=== PATIENT | male | born 1965 | race Hispanic/Latino ===

== ENCOUNTER 2019-03-26 07:08 | Observation (INO) | payer OTHER ==
[2019-03-17 09:21] LABS: BASOPHILS % 0.1 % (0.0-1.0); EOSINOPHILS # (AUTO) 0.1 (0.0-0.4); EOSINOPHILS % 0.8 % (0.0-6.0); LYMPHOCYTES % 27.2 % (18.0-39.1); MEAN CORPUSCULAR HEMOGLOBIN 30.4 pg (28-32); MEAN CORPUSCULAR HGB CONC 33.3 g/dL (31-35); MEAN CORPUSCULAR VOLUME 91.1 fL (81-99); MONOCYTES # (AUTO) 0.5 (0.2-0.8); MONOCYTES % 6.9 % (4.4-11.3); NEUTROPHILS # (AUTO) 4.7 (2.1-6.9); NEUTROPHILS % 64.7 % (38.7-80.0); PLATELET COUNT 185 x10e3/uL (140-360); RED BLOOD COUNT 4.94 x10e6/uL (4.3-5.7); RED CELL DISTRIBUTION WIDTH 12.9 % (11.7-14.4)
[2019-03-17 09:30] LABS: INR 1.23; PROTHROMBIN TIME 16.1 seconds (11.9-14.5)
[2019-03-17 09:45] LABS: BLOOD UREA NITROGEN 19 mg/dL (7-26); BUN/CREATININE RATIO 23 (6-25); CALCIUM 9.6 mg/dL (8.4-10.2); CARBON DIOXIDE 25 mmol/L (22-29); CHLORIDE 102 mmol/L (98-107); CREATININE, SERUM 0.81 mg/dL (0.72-1.25); EST GLOMERULAR FILTRATION RATE > 60 ML/MIN (60-); GLUCOSE 98 mg/dL (74-118); SODIUM 135 mmol/L (136-145)
[~2019-03-26] VITALS: Ht 177.8 cm; Wt 81.6 kg
[~2019-03-26 07:08] MED LIST: BENZONATATE100 MG PO; CRESTOR10 MG PO; DICYCLOMINE HCL20 MG PO; FARXIGA PO; MONTELUKAST SOD10 MG PO; NEXIUM20 MG PO; NEXIUM40 MG PO; TAMSULOSIN HCL0.4 MG PO; ZETIA10 MG PO
--- OUTSIDE RECORDS SUMMARY | 2019-03-26 07:11 | XMS REPORT | Clinical Summary ---
Author Author [facility] Address Unknown Phone Unavailable Care Team Providers Care Supervisor Fruit Grading Name Role Phone Luis AlbertobeanAnjel oliveira PCP Allergies Comments Active Allergy Reactions Severity Noted Date Codeine Phosphate Hives High 11/09/2012 Medications End Date Status Medication Sig Dispensed Refills Start Date Active ezetimibe (ZETIA) 10 mg Take 10 mg by 0 tablet mouth daily. Active omeprazole (PRILOSEC) 20 Take 20 mg by 0 MG capsuleIndications: mouth daily. Fatty liver, Abnormal LFTs, Hepatitis C virus infection without hepatic coma, unspecified chronicity, Screening for cancer Active esomeprazole (NEXIUM) 40 Take 40 mg by 0 MG capsule mouth daily. Active Problems Problem Noted Date Abnormal INR 11/24/2015 Muscle cramps 07/21/2015 Liver fibrosis 07/21/2015 Overweight 07/21/2015 Neck pain 02/28/2013 Hepatitis C 11/09/2012 Fatty liver 11/09/2012 Abnormal LFTs 11/09/2012 Screening for endocrine/metabolic/immunity disorders 11/09/2012 Hyperlipidemia 11/09/2012 Encounters Care Team Description Date Type Specialty Latisha Ac RN Appointment 03/24/2019 Telephone Hepatology Renea Saini RN Liver fibrosis (HCC) (Primary Dx) 03/13/2019 Orders Only Hepatology Renea Saini RN Liver fibrosis (HCC) (Primary Dx); Screening for malignant neoplasm 03/13/2019 Orders Only Hepatology after 03/25/2018 Family History Medical History Relation Name Comments Colon cancer Brother Hypertension Brother Hypertension Mother Relation Name Status Comments Brother Alive Brother Brother Father Mother Alive Social History Date Tobacco Use Types Packs/Day Years Used Never Smoker Smokeless Tobacco: Never Used Alcohol Use Drinks/Week oz/Week Comments No Sex Assigned at Date Recorded Not on file Industry Job Start Date Occupation Not on file Not on file Not on file Travel End Travel History Travel Start No recent travel history available. Last Filed Vital Signs Not on file Plan of Treatment Care Team Description Date Type Specialty Selene Shirley MD [address] [address] [phone] 04/03/2019 Appointment Radiology Selene Shirley MD [address] [address] [phone] Resource, [facility] E 04/03/2019 Office Visit Hepatology Procedures Comments Procedure Name Priority Date/Time Associated Diagnosis BASIC METABOLIC PANEL (7) Routine 03/24/2019 Liver fibrosis (HCC) 12:00 AM CDT HEPATIC FUNCTION PANEL Routine 03/24/2019 Liver fibrosis (HCC) 12:00 AM CDT CBC W/PLT COUNT & AUTO Routine 03/24/2019 Liver fibrosis (HCC) DIFFERENTIAL 12:00 AM CDT PROTHROMBIN TIME/INR Routine 03/24/2019 Liver fibrosis (HCC) 12:00 AM CDT ALPHA FETOPROTEIN (AFP), Routine 03/24/2019 Liver fibrosis (HCC) TUMOR MARKER 12:00 AM CDT Screening for malignant neoplasm after 03/25/2018 Results * Alpha fetoprotein (AFP), tumor marker (03/24/2019 12:00 AM CDT) AFP, Serum, Tumor Marker 3.6 0.0 - 8.3 ng/mL [facility] Comment: [employer] Electrochemiluminescence Immunoassay (ECLIA) Values obtained with different assay methods or kits cannot be used interchangeably.Results cannot be interpreted as absolute evidence of the presence or absence of malignant disease. This test is not interpretable in females. Specimen Blood Narrative Performed At Performed at: - [facility] [address] [place], [id number] Family Program Specialist: Jan Awad MD, Phone:[phone] Performing Organization Address City/State/Zipcode Phone Number [facility] * Pro-time/INR (03/24/2019 12:00 AM CDT) INR 1.6 (H) 0.8 - 1.2 [facility] 1 Comment: Reference interval is for non-anticoagulated patients. Suggested INR therapeutic range for Vitamin K antagonist therapy: Standard Dose (moderate intensity therapeutic range): 2.0 - 3.0 Higher intensity therapeutic range 2.5 - 3.5 Prothrombin Time 16.2 (H) 9.1 - 12.0 sec [facility] 1 Specimen Blood Narrative Performed At Performed at:01 - [facility] [address] [place], [id number] Family Program Specialist: Jan Awad MD, Phone:[phone] Performing Organization Address [facility] Phone Number [facility] * CBC with platelet count + automated diff (03/24/2019 12:00 AM CDT) WBC 7.7 3.4 - 10.8 x10E3/uL [facility] 1 RBC 5.06 4.14 - 5.80 x10E6/uL [facility] 1 Hemoglobin 15.6 13.0 - 17.7 g/dL [facility] 1 Hematocrit 45.5 37.5 - 51.0 % [facility] 1 MCV 90 79 - 97 fL [facility] 1 MCH 30.8 26.6 - 33.0 pg [facility] 1 MCHC 34.3 31.5 - 35.7 g/dL [facility] 1 RDW 13.7 12.3 - 15.4 % [facility] 1 Platelets 210 150 - 450 x10E3/uL [facility] % Neutros 59 Not Estab. % [facility] % Lymphs 33 Not Estab. % [facility] % Monos 7 Not Estab. % [facility] % Eos 1 Not Estab. % [facility] % Baso 0 Not Estab. % [facility] # Neutros 4.6 1.4 - 7.0 x10E3/uL [facility] # Lymphs 2.5 0.7 - 3.1 x10E3/uL [facility] # Monos 0.5 0.1 - 0.9 x10E3/uL [facility] # Eos 0.0 0.0 - 0.4 x10E3/uL [facility] 1 Baso (Absolute) 0.0 0.0 - 0.2 x10E3/uL [facility] % Immature Grans 0 Not Estab. % [facility] # Immature Grans 0.0 0.0 - 0.1 x10E3/uL [facility] 1 Specimen Blood Narrative Performed At Performed at:[address] [place], [place] [id number] Family Program Specialist: Jan Awad MD, Phone:[phone] Performing Organization Address [facility] Phone Number [facility] * Hepatic function panel (03/24/2019 12:00 AM CDT) Protein, Total, Serum 7.7 6.0 - 8.5 g/dL [facility] 1 Albumin, Serum 5.0 3.5 - 5.5 g/dL [facility] 1 Bilirubin, Total 0.3 0.0 - 1.2 mg/dL [facility] 1 Bilirubin, Direct 0.11 0.00 - 0.40 mg/dL [facility] 1 Alkaline Phosphatase, S 53 39 - 117 IU/L [facility] 1 AST (SGOT) 28 0 - 40 IU/L [facility] 1 ALT (SGPT) 37 0 - 44 IU/L [facility] 1 Specimen Blood Narrative Performed At Performed at:[address] [place], [place] [id number] Family Program Specialist: Jan Awad MD, Phone:[phone] Performing Organization Address [facility] Phone Number [facility] * Basic Metabolic Panel (03/24/2019 12:00 AM CDT) Glucose, Serum 105 (H) 65 - 99 mg/dL [facility] BUN 23 6 - 24 mg/dL [facility] 1 Creatinine, Serum 0.92 0.76 - 1.27 mg/dL [facility] 1 eGFR If NonAfricn Am 93 >59 mL/min/1.73 [facility] 1 eGFR If Africn Am 108 >59 mL/min/1.73 [facility] 1 BUN/Creatinine Ratio 25 (H) 9 - 20 [facility] 1 Sodium, Serum 141 134 - 144 mmol/L [facility] 1 Potassium, Serum 4.3 3.5 - 5.2 mmol/L [facility] 1 Chloride, Serum 104 96 - 106 mmol/L [facility] 1 Carbon Dioxide, Total 19 (L) 20 - 29 mmol/L [facility] 1 Calcium, Serum 10.2 8.7 - 10.2 mg/dL [facility] 1 Specimen Blood Narrative Performed At Performed at:01 - [facility] [address] [place], [id number] Family Program Specialist: Jan Awad MD, Phone:[phone] Performing Organization Address City/State/Zipcode Phone Number [facility] 1 after 03/25/2018 Insurance Payer Benefit Subscriber ID Type Phone Address Plan / Group [facility] xxxxxxxxx HMO/POS CARE POS SELECT CHOICE
--- OUTSIDE RECORDS SUMMARY | 2019-03-26 07:11 | XMS REPORT | Clinical Summary ---
Author Author [facility] Address Unknown Phone Unavailable Care Team Providers Care Cnc Machinist 2Nd Shift Name Role Phone Anjel Gamble MD PCP Allergies No Known Allergies Medications End Date Status Medication Sig Dispensed Refills Start Date Active esomeprazole (NexIUM) 40 Take 40 mg by 0 MG capsule mouth. Active ezetimibe (ZETIA) 10 mg Take 20 mg by 0 tablet mouth. Active tamsulosin (FLOMAX) 0.4 TK 1 C PO QD 1 11/21/201 mg capsule,extended 7 release 24hr Active Problems Not on file Family History Medical History Relation Name Comments No Known Problems Brother Colon cancer Father No Known Problems Maternal Aunt No Known Problems Maternal Grandfather No Known Problems Maternal Grandmother No Known Problems Maternal Uncle No Known Problems Mother No Known Problems Paternal Aunt No Known Problems Paternal Grandfather No Known Problems Paternal Grandmother No Known Problems Paternal Uncle No Known Problems Sister Fournier's esophagus Neg Hx Breast cancer Neg Hx Celiac disease Neg Hx Cirrhosis Neg Hx Colon polyps Neg Hx Crohn's disease Neg Hx Cystic fibrosis Neg Hx Eating disorder Neg Hx Esophageal cancer Neg Hx GERD Neg Hx DIRECTOR BIOINFORMATICS Cancer Neg Hx Hemochromatosis Neg Hx Inflammatory bowel Neg Hx disease Irritable bowel syndrome Neg Hx Liver cancer Neg Hx Liver disease Neg Hx Pancreatic cancer Neg Hx Pancreatitis Neg Hx Rectal cancer Neg Hx Stomach cancer Neg Hx Ulcerative colitis Neg Hx Relation Name Status Comments Brother Father Maternal Aunt Maternal Grandfather Maternal Grandmother Maternal Uncle Mother Paternal Aunt Paternal Grandfather Paternal Grandmother Paternal Uncle Sister Social History Date Tobacco Use Types Packs/Day Years Used Never Smoker Drinks/Week oz/Week Comments Alcohol Use No Sex Assigned at Date Recorded Not on file Industry Job Start Date Occupation Not on file Not on file Not on file Travel End Travel History Travel Start No recent travel history available. Last Filed Vital Signs Not on file Plan of Treatment Health Maintenance Due Date Last Done Comments COLONOSCOPY SCREENING 2013 SHINGLES VACCINES (#1) 2013 INFLUENZA VACCINE 03/06/2019 Results Not on fileafter 03/25/2018 Insurance Type Payer Benefit Subscriber ID Effective Phone Address Plan / Dates Group PPO BCBS BCBS xxxxxxxxxxxx 2015-P CHOICE resent PPO/[employer] EMPL PPO Advance Directives For more information, please contact: [phone] Patient Director Global Explanation Type Date Recorded Advance Directives, Living Will and Medical Power of Brick [employer] Mason Advance Directives, 09/22/2016 12:27 PM Living Will and Medical Power of [employer] Mason Advance Directives, 09/27/2016 2:26 PM Living Will and Medical Power of [employer] Mason
[2019-03-26] MEDS ORDERED: LEVOFLOXACIN 500MG/D5W 100ML 100 ML IV ONE (07:53)
[2019-03-26] MEDS ORDERED: IOPAMIDOL 610MG/1ML 300 MG/ML VIAL IV ONE (09:51)
[2019-03-26] MEDS ORDERED: FENTANYL CITRATE/PF 100MCG/2 ML INJ ONE ×2 (11:07→18:35)
--- NOTE | 2019-03-26 11:24 | Operative Report ---
DATE OF PROCEDURE: 03/26/2019 SURGEON: Kris Iglesias MD PREOPERATIVE DIAGNOSES: 1. Lower urinary tract obstructive symptoms. 2. Rule out bladder neck contraction. POSTOPERATIVE DIAGNOSES: 1. Lower urinary tract obstructive symptoms. 2. Rule out bladder neck contraction. 3. 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 OPERATION: 1. Cystourethroscopy. 2. Balloon dilation of the bladder neck. 3. Transurethral resection of the prostate from 10 to 3 o'clock position. ANESTHETIC: General. DESCRIPTION OF PROCEDURE: Mr. Diehl is a 53-year-old male who presented with a chief complaint of increasing lower urinary tract obstructive symptoms. He has had TURP in the past many, many years ago and now having increasing symptoms. This patient was placed on the table in lithotomy position and was prepped and draped in a sterile manner after satisfactory anesthesia. A #21 Austrian cystoscope was used and cystourethroscopy was performed and confirmed a previous problem of the obstruction at the level of the bladder neck with a large prostatic tissue hanging from the anterior wall of the prostate and almost completely occluding the prosthetic urethra. Cystoscopy was then performed using both right angle and the foroblique lens and the bladder mucosa was normal. Both ureteral orifices were seen and were within normal position, configuration efflux. The bladder wall was mildly trabeculated. The Arnold resectoscope was then placed passing the scope through the urethra to the bladder. Obturator removed and the Arnold resectoscope was placed. Reinspection of the bladder and prostatic fossa confirmed the previous cystoscopic findings. Resection of the prostatic tissue was done from around 9 o'clock going in a clock beltran fashion all the way to 3 clock resecting all the enlarged protruding obstructing prostatic tissue. Hemostasis was obtained all through and was very adequate. At the termination of the procedure, all the prostatic chips were removed. The cystoresectoscope was removed and a #22 three-way Austrian Kendrick catheter was placed on mild traction. Estimated blood loss was about 20 to 30 mL. Kris Iglesias MD MA/CORNELL /[id number]
--- OUTSIDE RECORDS SUMMARY | 2019-03-26 11:37 | XMS REPORT | Clinical Summary ---
Author Author [facility] Address Unknown Phone Unavailable Care Team Providers Care Pearl Restorer Name Role Phone Anjel Gamble MD PCP [...] Esophageal cancer Neg Hx GERD Neg Hx INDEPENDENT VIDEO PRODUCER Cancer Neg Hx Hemochromatosis Neg Hx Inflammatory [...] Advance Directives For more information, please contact: [phone] Patient Marine Farmer Explanation Type Date Recorded Advance Directives, Living Will and Medical Power of Educational Specialist Advance Directives, 09/22/2016 12:27 PM Living Will and Medical Power of Educational Specialist Advance Directives, 09/27/2016 2:26 PM Living Will and Medical Power of Educational Specialist
--- OUTSIDE RECORDS SUMMARY | 2019-03-26 11:37 | XMS REPORT | Clinical Summary ---
Author Author [facility] Address Unknown Phone Unavailable Care Team Providers Care Diagnostic Sales Specialist Name Role Phone Luis AlbertobeanAnjel oliveira PCP [...] Date Type Specialty Selene Shirley MD [address] [address] [phone] 04/03/2019 Appointment Radiology Selene Shirley MD [address] [address] [phone] Resource, [facility] E 04/03/2019 Office Visit Hepatology [...] Narrative Performed At Performed at: - [facility] [address] [place], [id number] [place] Chief: Jan Awad MD, Phone:[phone] Performing Organization Address City/State/Zipcode Phone Number [facility] [...] Narrative Performed At Performed at:01 - [facility] [address] [place], [id number] [place] Chief: Jan Awad MD, Phone:[phone] Performing Organization Address [facility] Phone Number [facility] 1 * CBC with platelet count [...] 1 Specimen Blood Narrative Performed At Performed at:[address] [place], [place] [id number] [employer] [place] Chief: Jan Awad MD, Phone:[phone] Performing Organization Address [facility] Phone Number [facility] * Hepatic function [...] 1 Specimen Blood Narrative Performed At Performed at:[address] [place], [place] [id number] [employer] [place] Chief: Jan Awad MD, Phone:[phone] Performing Organization Address [facility] Phone Number [facility] 1 * Basic [...] Narrative Performed At Performed at:01 - [facility] [address] [place], [id number] [place] Chief: Jan Awad MD, Phone:[phone] Performing Organization Address City/State/Zipcode Phone Number [facility] 1 after 03/25/2018 Insurance Payer Benefit Subscriber ID Type Phone Address Plan / Group [facility] HMO/POS CARE POS SELECT CHOICE
[2019-03-26 12:26] VITALS: BP 110/68
[2019-03-26] MEDS ORDERED: LEVOFLOXACIN 500MG/D5W 100ML 100 ML IV SCH (12:33)
[2019-03-26 12:43] VITALS: BP 110/68
[2019-03-26 12:57] VITALS: BP 110/68
[2019-03-26] MEDS: ONDANSETRON HCL INJ 2MG/ML 2ML 2 MG/ML VIAL IV PRN ×2 (13:14→19:30)
[2019-03-26] MEDS: DEXTROSE 5%/0.45% SOD CHL 1,000 ML IV SCH ×2 (13:14→21:35)
[2019-03-26] MEDS: HYDROMORPHONE 2MG/ML 2 MG/ML ML IV PRN ×2 (13:14→19:30)
[2019-03-26] MEDS ORDERED: PROPOFOL IV EMULSION 10 MG/ML 20 ML VIAL ONE (18:15)
[2019-03-26] MEDS ORDERED: DEXAMETHASONE SOD PHOS INJ 4 MG/ML VIAL ONE (18:15)
[2019-03-26] MEDS ORDERED: METOCLOPRAMIDE HCL 10 MG/2ML VIAL ONE (18:15)
[2019-03-26] MEDS ORDERED: GLYCOPYRROLATE INJ 1MG/ 5 ML SYR ONE (18:15)
[2019-03-26] MEDS ORDERED: LIDOCAINE HCL 2% LOCAL INJ 5 ML SDV VIAL INJ ONE (18:15)
[2019-03-26] MEDS ORDERED: SEVOFLURANE INHAL SOLN 250 ML PEN BTL ONE (18:15)
[2019-03-26] MEDS ORDERED: ONDANSETRON HCL INJ 2MG/ML 2ML 2 MG/ML VIAL ONE (18:15)
[2019-03-26] MEDS ORDERED: MIDAZOLAM HCL 2 MG/2 ML VIAL ONE (18:35)
--- NOTE | 2019-03-26 19:10 | NUR ---
Received patient from day nurse, safety and fall precautions maintained as per hospital protocol.
[2019-03-26 20:00] VITALS: BP 102/72
[2019-03-26 20:47] VITALS: BP 102/71
[2019-03-26] MEDS ORDERED: SIMVASTATIN 40 MG TAB PO SCH (21:00)
[2019-03-27] MEDS: HYDROMORPHONE 2MG/ML 2 MG/ML ML IV PRN ×2 (00:21→15:54)
[2019-03-27 01:27] VITALS: BP 107/75
[2019-03-27] MEDS: DEXTROSE 5%/0.45% SOD CHL 1,000 ML IV SCH ×2 (04:44→13:25)
[2019-03-27 05:15] VITALS: BP 92/62
[2019-03-27 06:23] LABS: BASOPHILS % 0.1 % (0.0-1.0); EOSINOPHILS % 0.1 % (0.0-6.0); HEMOGLOBIN 12.9 g/dL (14.0-18.0); LYMPHOCYTES # (AUTO) 1.3 (1.0-3.2); LYMPHOCYTES % 9.5 % (18.0-39.1); MEAN CORPUSCULAR HEMOGLOBIN 30.5 pg (28-32); MEAN CORPUSCULAR HGB CONC 32.3 g/dL (31-35); MEAN CORPUSCULAR VOLUME 94.6 fL (81-99); MONOCYTES # (AUTO) 0.7 (0.2-0.8); MONOCYTES % 5.1 % (4.4-11.3); NEUTROPHILS # (AUTO) 11.9 (2.1-6.9); NEUTROPHILS % 84.8 % (38.7-80.0); PLATELET COUNT 170 x10e3/uL (140-360); RED BLOOD COUNT 4.23 x10e6/uL (4.3-5.7); RED CELL DISTRIBUTION WIDTH 13.1 % (11.7-14.4)
[2019-03-27 06:39] LABS: ANION GAP 11.8 mmol/L (8-16); BLOOD UREA NITROGEN 15 mg/dL (7-26); BUN/CREATININE RATIO 18 (6-25); CALCIUM 8.8 mg/dL (8.4-10.2); CARBON DIOXIDE 24 mmol/L (22-29); CHLORIDE 100 mmol/L (98-107); CREATININE, SERUM 0.82 mg/dL (0.72-1.25); EST GLOMERULAR FILTRATION RATE > 60 ML/MIN (60-); GLUCOSE 142 mg/dL (74-118); POTASSIUM 3.8 mmol/L (3.5-5.1); SODIUM 132 mmol/L (136-145)
--- NOTE | 2019-03-27 07:00 | NUR ---
patient endorsed to next shift for continuity of care.
[2019-03-27 07:54] VITALS: BP 97/69
[2019-03-27] MEDS ORDERED: LEVOFLOXACIN 500MG/D5W 100ML 100 ML IV SCH (09:00)
[2019-03-27] MEDS ORDERED: PANTOPRAZOLE SOD 40 MG TABEC PO SCH (09:00)
[2019-03-27] MEDS ORDERED: DAPAGLIFLOZIN 10 MG PO SCH (09:00)
[2019-03-27 09:57] VITALS: BP 97/69
[2019-03-27 12:17] VITALS: BP 94/69
[2019-03-27] MEDS: ONDANSETRON HCL INJ 2MG/ML 2ML 2 MG/ML VIAL IV PRN (15:59)
[2019-03-27 16:24] VITALS: BP 124/84
--- NOTE | 2019-03-27 18:01 | NUR ---
PATIENT VOIDED 100 ML POST URINARY CATHETER REMOVAL.
== END 2019-03-27 18:50 | disposition home or self-care (01) ==
LOC: OR 07:08 → PACU V 11:03 → IMCU 11:45
PROVIDERS: ADMIT Specialist; ATTEND Specialist
DX: N40.1 Benign prostatic hyperplasia with lower urinary tract symptoms (principal); N13.8 Other obstructive and reflux uropathy; N35.919 Unspecified urethral stricture, male, unspecified site; E11.9 Type 2 diabetes mellitus without complications; K21.9 Gastro-esophageal reflux disease without esophagitis; E78.00 Pure hypercholesterolemia, unspecified
CPT/HCPCS: 36415 ×3; 52630; 80048 ×2; 82948; 84152; 85025 ×2; 85610; 88305; 93005; 96360; 96361; G0378 ×2; J1100; J1170 ×2; J1956 ×2; J2001; J2250; J2405 ×2; J2704; J2765; J3010; J3490; Q9967; S0164

== ENCOUNTER → 2022-03-23 | Outpatient (CLI) | payer OTHER | LOC: SLEEP 19:22 | PROVIDERS: ATTEND Internal Medicine Critical Care Medicine | DX: G47.33 Obstructive sleep apnea (adult) (pediatric) (principal); I48.91 Unspecified atrial fibrillation; J30.2 Other seasonal allergic rhinitis; K21.9 Gastro-esophageal reflux disease without esophagitis; Z45.42 Encounter for adjustment and management of neurostimulator | CPT/HCPCS: 95810 ==